=== PATIENT | male | born 1990 | race Caucasian/White ===

== ENCOUNTER → 2018-04-16 11:08 | Outpatient (CLI) | payer MEDICAID, SELFPAY ==
--- NOTE | 2018-04-16 11:16 | RAD_ITS ---
HISTORY: tightness and limited movement of spine COMPARISON: None FINDINGS: XR Spine Lumbar 5 views The lumbar vertebra show normal height and alignment. Disc space heights are preserved. No bony abnormality. The posterior elements appear intact. No spondylolisthesis. The SI joints are preserved. IMPRESSION: Normal exam, lumbar spine. at 0444 Reported and signed by: Jose Francisco Robbins MD Electronically Signed: Jose Francisco Robbins, at 4:43 EST Tel , Service support , RAD/L/S Spine Min 4 Views
--- NOTE | 2018-04-16 11:30 | RAD_ITS ---
HISTORY: tightness and limited movement in spinepatient claims old slipped discs in neck COMPARISON: None FINDINGS: XR cervical spine 6 views The cervical vertebra show normal height and alignment. No fracture or bony abnormality. Cervical disc space heights are preserved. Posterior elements are intact. No spondylolisthesis. The C1-C2 relationship appears normal. IMPRESSION: Normal cervical spine. at 0558 Reported and signed by: Jose Francisco Robbins MD Electronically Signed: Jose Francisco Robbins, at 5:57 EST Tel , Service support , RAD/Cerv Spine 4 or 5 Views
== END ==
PROVIDERS: Referring Provider Chiropractor; Visit Provider Chiropractor
DX: S33.5XXA Sprain of ligaments of lumbar spine, initial encounter (principal); S13.4XXA Sprain of ligaments of cervical spine, initial encounter
CPT/HCPCS: 72050; 72110